=== PATIENT | female | born 1965 | race Caucasian/White ===

== ENCOUNTER → 2021-07-24 | Outpatient (CLI) | payer OTHER ==
--- NOTE | 2021-07-24 18:11 | RAD ---
Exam: Left ankle 3 views INDICATION: Lateral ankle pain TECHNIQUE: Frontal, lateral and oblique views left ankle Comparisons: None FINDINGS: Small osseous fragment adjacent to the posterior aspect of the distal tibia seen best on lateral view . Additionally there is a mild cortical step-off noted along the posterior aspect of the talus also s een best on lateral view. Mild soft tissue swelling surrounding the ankle. Joint spaces are well-main tained. Bone mineralization is normal. IMPRESSION: Question possible avulsion fracture fragments along the posterior tibiotalar joint as described above . Correlation with CT is recommended to further evaluate. Electronically signed by: Gagandeep Robles MD (07/24/2021 6:08 PM) [facility]
== END ==
LOC: RAD 17:17
PROVIDERS: ATTEND Nurse Practitioner
DX: M79.89 Other specified soft tissue disorders (principal); M25.572 Pain in left ankle and joints of left foot
CPT/HCPCS: 73610